=== PATIENT | male | born 1955 | race Caucasian/White ===

== ENCOUNTER 2021-03-29 08:50 | Inpatient (IN) | payer OTHER ==
[~2021-03-29] VITALS: Ht 175.3 cm; Wt 74.8 kg
[~2021-03-29 08:50] MED LIST: CEFPODOXIME PR200 MG PO; GLUCOPHAGE500 MG PO; INDERAL TAB 4040 MG PO; IPRAT-ALBUT 0.5-3 ML NEB; LEVAQUIN750 MG PO; NICOTINE PATCH1 EAC1 TD; ZITHROMAX500 MG PO
[2021-03-29 09:42] LABS: HEMOGLOBIN 15.2 gm/dl (14.0-17.5); RED BLOOD COUNT 4.35 M/UL (4.20-5.50); WHITE BLOOD COUNT 12.4 K/UL (4.5-11.0)
[2021-03-29 09:54] LABS: BUN/CREATININE RATIO 19 (0-10)
[2021-03-29] MEDS ORDERED: PIOGLITAZONE HC30 MG PO (17:42)
[2021-03-29] MEDS ORDERED: PRAVASTATIN SOD40 MG PO (18:42)
[2021-03-29] MEDS ORDERED: PRINIVIL20 MG PO (18:43)
[2021-03-30 04:32] LABS: HEMOGLOBIN 14.6 gm/dl (14.0-17.5); RED BLOOD COUNT 4.11 M/UL (4.20-5.50); WHITE BLOOD COUNT 14.1 K/UL (4.5-11.0)
[2021-03-30 08:01] LABS: BUN/CREATININE RATIO 24 (0-10)
[2021-03-31 06:55] LABS: HEMOGLOBIN 14.3 gm/dl (14.0-17.5); RED BLOOD COUNT 4.16 M/UL (4.20-5.50)
[2021-03-31 07:21] LABS: BUN/CREATININE RATIO 29 (0-10)
[2021-04-01 07:30] LABS: HEMOGLOBIN 13.9 gm/dl (14.0-17.5); RED BLOOD COUNT 4.07 M/UL (4.20-5.50); WHITE BLOOD COUNT 18.8 K/UL (4.5-11.0)
[2021-04-01 07:50] LABS: BUN/CREATININE RATIO 33 (0-10)
[2021-04-02 06:44] LABS: HEMOGLOBIN 14.9 gm/dl (14.0-17.5); RED BLOOD COUNT 4.31 M/UL (4.20-5.50); WHITE BLOOD COUNT 17.5 K/UL (4.5-11.0)
[2021-04-02 07:40] LABS: BUN/CREATININE RATIO 27 (0-10)
[2021-04-02] MEDS ORDERED: SYMBICORT 80-10.2 GM INH (09:12)
[2021-04-02] MEDS ORDERED: AUGMENTIN 875-1 EACH PO (09:12)
[2021-04-02] MEDS ORDERED: PREDNISONE 20 M20 MG PO (09:12)
[2021-04-02] MEDS ORDERED: NICOTINE PATCH1 EAC1 TD (09:12)
[2021-04-02] MEDS ORDERED: COMPACT COMPRE1 EACH MC (09:12)
[2021-04-02] MEDS ORDERED: IPRAT-ALBUT 0.5-3 ML NEB (09:12)
[2021-04-02] MEDS ORDERED: ASPIRIN EC81 MG PO (09:24)
--- NOTE | 2021-04-02 09:25 | NUR ---
ROOM AIR SATURATION 70%
== END 2021-04-02 13:40 | disposition home or self-care (01) | DRG 193 ==
LOC: ER1 08:50 → M/S 13:44 → CDU 13:44 → M/S 03-30 22:53
PROVIDERS: Nurse Practitioner; Physician Assistant; ADMIT Internal Medicine
PROC: 5A0945A Assistance with Respiratory Ventilation, 24-96 Consecutive Hours, High Flow/Velocity Cannula (ICD-10-PCS; principal; 2021-03-30)
DX: J18.9 Pneumonia, unspecified organism (principal); J96.21 Acute and chronic respiratory failure with hypoxia; J96.22 Acute and chronic respiratory failure with hypercapnia; C85.90 Non-Hodgkin lymphoma, unspecified, unspecified site; I10 Essential (primary) hypertension; E78.5 Hyperlipidemia, unspecified; F17.210 Nicotine dependence, cigarettes, uncomplicated; I77.1 Stricture of artery; E11.65 Type 2 diabetes mellitus with hyperglycemia; D75.89 Other specified diseases of blood and blood-forming organs; J43.2 Centrilobular emphysema; Z99.81 Dependence on supplemental oxygen; Z88.1 Allergy status to other antibiotic agents; Z82.49 Family history of ischemic heart disease and other diseases of the circulatory system; Z90.81 Acquired absence of spleen
CPT/HCPCS: 0240U; 36415; 36600; 71045; 71046; 80048; 80053; 81001; 82550; 82553; 82607; 82746; 82803; 82962; 83605; 83874; 83880; 84484; 85025; 85379; 85610; 85652; 85730; 86140; 87040; 93005; 94640; 94664; 94760; 96374; 99285; J0295; J0456; J0696; J2920; J2930; J7030; J7050; Q9967

== ENCOUNTER → 2021-04-30 | Outpatient (CLI) | payer OTHER ==
[~2021-04-30] MED LIST changes: +ASPIRIN EC81 MG PO; +AUGMENTIN 875-1 EACH PO; +COMPACT COMPRE1 EACH MC; +PIOGLITAZONE HC30 MG PO; +PRAVASTATIN SOD40 MG PO; +PREDNISONE 20 M20 MG PO; +PRINIVIL20 MG PO; +SYMBICORT 80-10.2 GM INH
== END ==
LOC: HEART 5 14:26
DX: J44.9 Chronic obstructive pulmonary disease, unspecified (principal); R06.02 Shortness of breath
CPT/HCPCS: 94060; 94729

== ENCOUNTER → 2021-09-15 | Outpatient (CLI) | payer OTHER | LOC: ECHO 10:00 | DX: R60.9 Edema, unspecified (principal); I34.0 Nonrheumatic mitral (valve) insufficiency | CPT/HCPCS: ECHO; 93306 ==

== ENCOUNTER → 2021-09-20 | Outpatient (CLI) | payer OTHER | LOC: SLEEP 10:56 | DX: G47.14 Hypersomnia due to medical condition (principal) | CPT/HCPCS: 95810 ==